=== PATIENT | male | born 1995 | race Two or more races ===

== ENCOUNTER 2023-10-07 05:25 | Emergency (ER) | payer OTHER ==
[~2023-10-07] VITALS: Ht 177.8 cm; Wt 97.1 kg
[2023-10-07] MEDS ORDERED: PEPCID40 MG PO (05:42)
[2023-10-07] MEDS ORDERED: DIPHENHYDRAMINE HCL 50 MG/ML VIAL 1ML IV STA (06:07)
[2023-10-07] MEDS ORDERED: METHYLPREDNISOLONE SOD SUCC 125 MG VIAL IV STA (06:07)
[2023-10-07] MEDS ORDERED: FAMOtidine 10 MG/ML (4ML VIAL) IV PUSH STA (06:07)
[2023-10-07] MEDS ORDERED: EPINEPHRINE HCL/PF 1 MG/ML AMPUL SUBCUTANEO STA (06:08)
[2023-10-07 06:53] LABS: HEMATOCRIT 47.6 % (39.0-48.0); MEAN CELL VOLUME 85.4 fL (80.0-100.00); MEAN CORPUSCULAR HEMOGLOBIN 30.5 pg (27.00-32.0); MEAN CORPUSCULAR HGB CONC 35.7 g/dl (32.0-36.0); PLATELET COUNT 286 K/uL (150-450); RED BLOOD COUNT 5.57 M/uL (4.00-6.00); RED CELL DISTRIBUTION WIDTH 13.1 % (11.5-14.5)
== END 2023-10-07 07:29 | disposition home or self-care (01) ==
LOC: ER 05:25
DX: R10.9 Unspecified abdominal pain (principal); T78.40XA Allergy, unspecified, initial encounter; Z88.5 Allergy status to narcotic agent; Z91.013 Allergy to seafood